=== PATIENT | male | born 1950 | race Caucasian/White ===

== ENCOUNTER 2021-06-05 16:32 | Emergency (ER) | payer OTHER, MEDICARE ==
[~2021-06-05] VITALS: Ht 175.3 cm; Wt 64.5 kg
[2021-06-05 18:56] LABS: BASOPHILS % (AUTO) 0.4 % (0-1); EOSINOPHILS % (AUTO) 0 % (0-6); HEMATOCRIT 53.5 % (42.0-52.0); HEMOGLOBIN 17.9 g/dl (14.0-17.9); LYMPHOCYTES # (AUTO) 0.5 X10'3 (1.1-4.8); LYMPHOCYTES % (AUTO) 6.4 % (21-51); MEAN CORPUSCULAR HEMOGLOBIN 30.4 PG (27.0-31.0); MEAN CORPUSCULAR HGB CONC 33.5 g/dL (33.0-36.5); MEAN CORPUSCULAR VOLUME 90.6 FL (78-98); MEAN PLATELET VOLUME 8.5 FL (7.4-10.4); MONOCYTES # (AUTO) 1.1 X10'3 (0-0.9); MONOCYTES % (AUTO) 13.4 % (2-12); NEUTROPHILS # (AUTO) 6.4 X10'3 (1.8-7.7); NEUTROPHILS % (AUTO) 79.8 % (42-75); PLATELET COUNT 230 X10'3 (140-440); RED CELL DISTRIBUTION WIDTH 14.3 % (11.5-14.5)
[2021-06-05 19:05] LABS: D-DIMER 1.16 MG/L FEU (0-0.50)
[2021-06-05 19:11] LABS: ALANINE AMINOTRANSFERASE 42 U/L (12-78); ALBUMIN 3.6 G/DL (3.4-5.0); ALBUMIN/GLOBULIN RATIO 0.8 (1.1-1.5); ALKALINE PHOSPHATASE 105 IU/L (46-116); ANION GAP 14 (8-16); ASPARTATE AMINO TRANSFERASE 33 U/L (10-37); BILIRUBIN,TOTAL 0.4 MG/DL (0.1-1.0); BLOOD UREA NITROGEN 26 MG/DL (7-18); BUN/CREATININE RATIO 20.5 (5.4-32.0); CALCIUM 9.3 MG/DL (8.5-10.1); CHLORIDE 100 MMOL/L (99-107); CREATININE 1.27 MG/DL (0.60-1.10); GLUCOSE 115 MG/DL (70-104); SODIUM 139 MMOL/L (135-145); TOTAL CARBON DIOXIDE 25.1 MMOL/L (24-32); TOTAL PROTEIN 7.9 G/DL (6.4-8.2); eGFR 56 ML/MIN
[2021-06-05] MEDS ORDERED: iohexol 350MG/ML 100ml bottle IV ONE (19:20)
--- NOTE | 2021-06-05 20:55 | NUR ---
Pt. is freuently leaving the area to go smoke. Pt. has been informed this is not acceptable. Pt. is able to ambulate using a cane without assistance.
[2021-06-05] MEDS ORDERED: DEXAMETHASONE 6 MG TABLET PO STA (21:23)
[2021-06-05] MEDS ORDERED: BAMLANIVIMAB 700mg/20ml inj. 700 MG, ETESEVIMAB 700mg/20mL inj. 1,400 MG in normal sali... IV ONE (21:25)
[2021-06-05 21:44] VITALS: BP 127/61
[2021-06-05 22:19] LABS: PLATELET ESTIMATE NORMAL; TOTAL CELLS COUNTED 100
[2021-06-05 22:20] LABS: ELLIPTOCYTES FEW; POIKILOCYTOSIS FEW
[2021-06-05 22:22] LABS: ACANTHOCYTES 1+
[2021-06-05 22:23] LABS: BURR CELLS 1+
[2021-06-05 22:24] LABS: TOXIC GRANULATION 1+; TOXIC VACUOLATION 1+
== END 2021-06-05 23:30 | disposition left against medical advice (07) ==
LOC: EDBD 16:33 → ER 16:33
DX: U07.1 COVID-19 (principal); J02.9 Acute pharyngitis, unspecified; R06.02 Shortness of breath; R10.84 Generalized abdominal pain; R53.1 Weakness; R05.9 Cough, unspecified; R11.0 Nausea; I10 Essential (primary) hypertension; J45.909 Unspecified asthma, uncomplicated; F17.200 Nicotine dependence, unspecified, uncomplicated
CPT/HCPCS: 36415; 71045; 71275; 80053; 84145; 84484; 85007; 85025; 85379; 87635; 93005; 99285; C9803; Q9967; J8540